=== PATIENT | male | born 1995 | race Caucasian/White ===

== ENCOUNTER 2017-12-29 17:49 | Emergency (ER) | payer OTHER ==
[~2017-12-29] VITALS: Ht 167.6 cm; Wt 54.4 kg
[2017-12-29] MEDS ORDERED: COLD & FLU SEV1 EACH PO (18:06)
[2017-12-29 18:46] LABS: INFLUENZA A ANTIGEN None Detected (None Detect); INFLUENZA B ANTIGEN None Detected (None Detect)
[2017-12-29] MEDS ORDERED: PROAIR HFA8.5 GM INH (18:48)
[2017-12-29] MEDS ORDERED: AMOXICILLIN 50500 MG PO (18:48)
[2017-12-29 19:11] VITALS: BP 145/98
== END 2017-12-29 19:12 | disposition home or self-care (01) ==
LOC: M.ERS 17:49
PROVIDERS: Nurse Practitioner Family
DX: H66.93 Otitis media, unspecified, bilateral (principal); J20.9 Acute bronchitis, unspecified; F17.200 Nicotine dependence, unspecified, uncomplicated; Z88.1 Allergy status to other antibiotic agents